=== PATIENT | male | born 1940 | race Caucasian/White ===

== ENCOUNTER 2016-10-17 11:40 | Emergency (ER) | payer MEDICARE ==
[~2016-10-17] VITALS: Ht 175.3 cm; Wt 109.0 kg
[2016-10-17 11:48] VITALS: TEMP 36.5; Ht 175.3 cm; Wt 109.0 kg
[2016-10-17] MEDS ORDERED: DILT120C68 PO (12:08)
[2016-10-17] MEDS ORDERED: SIMV40TA2 PO (12:08)
[2016-10-17] MEDS ORDERED: GABA1CAP PO (12:08)
[2016-10-17] MEDS ORDERED: WARF5TAB7 PO ×2 (12:08)
--- NOTE | 2016-10-17 12:40 | EMERGENCY ROOM VISIT NOTE ---
History Report prepared by Harley: Jamison Rockwell Under the Supervision of: Dr. Mars Crespo M.D. First contact with patient: 12:17 Chief Complaint: HIP PAIN Stated Complaint: LEFT HIP DOWN TO ANKLE PAIN-SENT FROM [facility] History of Present Illness The patient is a 76 year old male who presents to the Emergency Room with complaints of constant left leg pain starting yesterday. He currently rates his discomfort as an 8/10 in severity. The patient states that the pain goes from his left buttocks to his left calf. He states that he has not been doing heavy lifting, and he has had no trauma. The patient states that he is currently on warfarin for a history of A-fib, though he does not have any history of clots in his legs. He states that his Coumadin level was 2.7 two weeks ago. The patient states that he has never had pain like this before, and he has taken Tylenol for the pain. He additionally notes that last week he drove here from [place]. Source of History: patient Onset: yesterday Position: leg (left) Symptom Intensity: 8/10 Timing: constant Review of Systems See HPI for pertinent positives & negatives. A total of 10 systems reviewed and were otherwise negative. Past Medical & Surgical Medical Problems: (1) A-fib Social History Smoking Status: Never Smoker Marital Status: Housing Status: lives with family Occupation Status: employed Current/Historical Medications Scheduled Diltiazem Hcl Ext Rel (Tiazac), 120 MG PO DAILY Gabapentin (Neurontin), Unknown Dose PO DAILY Simvastatin (Zocor), 40 MG PO DAILY Warfarin Sod (Jantoven), 5 MG PO 3XWK Warfarin Sod (Jantoven), 7.5 MG PO 4XWK Scheduled PRN Tramadol (Ultram), 1-2 TAB PO Q6 PRN for Pain or Fever Allergies Coded Allergies: No Known Allergies (Unverified , 10/17/16) Physical Exam Vital Signs Date Time Temp Pulse Resp B/P (MAP) Pulse Ox O2 Delivery O2 Flow Rate FiO2 10/17/16 14:28 85 16 121/68 96 Room Air 10/17/16 11:48 36.5 93 18 143/84 93 Room Air Physical Exam GENERAL: Patient is in no acute distress. HEENT: No acute trauma, normocephalic atraumatic, mucous membranes moist, no nasal congestion, no scleral icterus. NECK: No stridor, no adenopathy, no meningismus, trachea is midline. LUNGS: Clear to auscultation bilaterally, no wheeze, no rhonchi, breath sounds equal. HEART: Irregular rhythm with normal rate. No murmur. ABDOMEN: Soft, nontender, bowel sounds positive, no hernias, no peritonitis. EXTREMITIES: Mild bilateral pedal edema with chronic skin change. No cellulitis. Both feet warm to touch. Tenderness to palpation to the left, posterior, superior calf. NEUROLOGIC: Oriented x 3, no acute motor or sensory deficits, no focal weakness. SKIN: No rash, no jaundice, no diaphoresis. Medical Decision & Procedures ER Provider Diagnostic Interpretation: Radiology results as stated below per my review and radiologist interpretation: LEFT LOWER EXTREMITY VENOUS DOPPLER HISTORY: Left leg pain, driving alot, swelling COMPARISON STUDY: None. FINDINGS: There is normal compressibility, flow, and augmentation within the left lower extremity deep venous system. IMPRESSION: No DVT within the left lower extremity. Electronically signed by: Franco Taveras M.D. 10/17/2016 2:05 PM Dictated Date/Time: 10/17/2016 2:04 PM LEFT FEMUR 2 VIEWS ROUTINE, LEFT HIP UNILATERAL 2 VIEWS, LEFT KNEE 1 OR 2 VIEWS ROUTINE HISTORY: 76 years-old Male acute left leg pain COMPARISON: None available TECHNIQUE: 2 views of left knee, 2 views of the left hip and 2 views of the left femur FINDINGS: HIP: Moderate left hip degenerative changes are present. The bones are mildly demineralized. There is no acute fracture or dislocation. Metallic clips are seen overlying the pubic symphysis. FEMUR: The bones are mildly demineralized. No acute fracture or dislocation is identified. Tricompartmental osteoarthritis about the knee is noted as described below. KNEE: Chondrocalcinosis is noted within the medial and lateral compartments. Mild to moderate medial and patellofemoral osteoarthritis is noted with mild lateral compartment disease. The bones are mildly demineralized. There is no acute fracture or dislocation identified. There is a small joint effusion. No intra-articular was body identified. IMPRESSION: 1. No acute fracture or dislocation of the left hip, femur or knee. 2. 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 3. Small knee joint effusion. The above report was generated using voice recognition software. It may contain grammatical, syntax or spelling errors. Electronically signed by: Amaury Pagan M.D. 10/17/2016 1:30 PM Dictated Date/Time: 10/17/2016 1:25 PM LEFT FEMUR 2 VIEWS ROUTINE, LEFT HIP UNILATERAL 2 VIEWS, LEFT KNEE 1 OR 2 VIEWS ROUTINE HISTORY: 76 years-old Male acute left leg pain COMPARISON: None available TECHNIQUE: 2 views of left knee, 2 views of the left hip and 2 views of the left femur FINDINGS: HIP: Moderate left hip degenerative changes are present. The bones are mildly demineralized. There is no acute fracture or dislocation. Metallic clips are seen overlying the pubic symphysis. FEMUR: The bones are mildly demineralized. No acute fracture or dislocation is identified. Tricompartmental osteoarthritis about the knee is noted as described below. KNEE: Chondrocalcinosis is noted within the medial and lateral compartments. Mild to moderate medial and patellofemoral osteoarthritis is noted with mild lateral compartment disease. The bones are mildly demineralized. There is no acute fracture or dislocation identified. There is a small joint effusion. No intra-articular was body identified. IMPRESSION: 1. No acute fracture or dislocation of the left hip, femur or knee. 2. 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 3. Small knee joint effusion. The above report was generated using voice recognition software. It may contain grammatical, syntax or spelling errors. Electronically signed by: Amaury Pagan M.D. 10/17/2016 1:30 PM Dictated Date/Time: 10/17/2016 1:25 PM LEFT FEMUR 2 VIEWS ROUTINE, LEFT HIP UNILATERAL 2 VIEWS, LEFT KNEE 1 OR 2 VIEWS ROUTINE HISTORY: 76 years-old Male acute left leg pain COMPARISON: None available TECHNIQUE: 2 views of left knee, 2 views of the left hip and 2 views of the left femur FINDINGS: HIP: Moderate left hip degenerative changes are present. The bones are mildly demineralized. There is no acute fracture or dislocation. Metallic clips are seen overlying the pubic symphysis. FEMUR: The bones are mildly demineralized. No acute fracture or dislocation is identified. Tricompartmental osteoarthritis about the knee is noted as described below. KNEE: Chondrocalcinosis is noted within the medial and lateral compartments. Mild to moderate medial and patellofemoral osteoarthritis is noted with mild lateral compartment disease. The bones are mildly demineralized. There is no acute fracture or dislocation identified. There is a small joint effusion. No intra-articular was body identified. IMPRESSION: 1. No acute fracture or dislocation of the left hip, femur or knee. 2. 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 3. Small knee joint effusion. The above report was generated using voice recognition software. It may contain grammatical, syntax or spelling errors. Electronically signed by: Amaury Pagan M.D. 10/17/2016 1:30 PM Dictated Date/Time: 10/17/2016 1:25 PM Laboratory Results Test 10/17/16 12:48 Prothrombin Time 29.3 SECONDS (9.0-12.0) Prothromb Time International Ratio 2.6 (0.9-1.1) Activated Partial Thromboplast Time 38.2 SECONDS (21.0-31.0) Partial Thromboplastin Ratio 1.5 Laboratory results reviewed by me. ED Course 1217: The patient was evaluated in room A2. A complete history and physical exam was performed. 1410: I went to reevaluate the patient, but he was still at ultrasound. 1432: Reevaluated the patient. Discussed results and discharge instructions: He verbalized understanding and agreement. The patient is ready for discharge. 1450: I reassessed the patient, and talked with him again and answered his questions. He is good to go home. Medical Decision Differential Diagnoses Include: Sciatica, nerve impingement, hematoma, Mcghee's cyst, fracture or bone lesion, cellulitis, and DVT The patient presents with left leg pain from the buttock down to the ankle. Imaging of the left hip, femur and knee did not show any lytic lesions. Arthritis was seen, no fracture. Left leg ultrasound does not show any DVT. There was no cellulitis of the left lower extremity clinically. INR was subtherapeutic for someone using Coumadin. The patient presents with left leg pain. The pain is likely sciatica and or arthritis related. The patient was reassured by his negative ultrasound. I'm going to try some tramadol for uncontrolled pain. Ice was suggested. He will follow with his doctor as needed and return here if worsening. [place] Drug Monitoring Program Search Results: patient reviewed within database, no issues identified Medication Reconcilliation Current Medication List: was personally reviewed by me Blood Pressure Screening Patient's blood pressure: Elevated blood pressure Blood pressure disposition: Elevated BP felt to be situational Impression Primary Impression: Leg pain, left Additional Impression: Sciatica Scribe Attestation The scribe's documentation has been prepared under my direction and personally reviewed by me in its entirety. I confirm that the note above accurately reflects all work, treatment, procedures, and medical decision making performed by me. Departure Information Dispostion Home / Self-Care Prescriptions Tramadol (Ultram) 50 Mg Tab 1-2 TAB PO Q6 Y for Pain or Fever, #12 TAB Prov: Mars Crespo M.D. 10/17/16 Referrals No Doctor, Assigned (PCP) Forms HOME CARE DOCUMENTATION FORM, IMPORTANT VISIT INFORMATION Patient Instructions My [facility] Additional Instructions may use tylenol for pain ice to the sore areas tramadol 1-2 tab every 6 hours for more severe pain no driving with the Tramadol return if worsening no clot by testing arthritis was seen on xray Problem Qualifiers
[2016-10-17 13:11] LABS: INR 2.6 (0.9-1.1); PARTIAL THROMBOPLASTIN RATIO 1.5; PROTHROMBIN TIME (PATIENT) 29.3 SECONDS (9.0-12.0)
--- NOTE | 2016-10-17 13:31 | DIAGNOSTIC IMAGING REPORT ---
LEFT FEMUR 2 VIEWS ROUTINE, LEFT HIP UNILATERAL 2 VIEWS, LEFT KNEE 1 OR 2 VIEWS ROUTINE HISTORY: 76 years-old Male acute left leg pain COMPARISON: None available TECHNIQUE: 2 views of left knee, 2 views of the left hip and 2 views of the left femur FINDINGS: HIP: Moderate left hip degenerative changes are present. The bones are mildly demineralized. There is no acute fracture or dislocation. Metallic clips are seen overlying the pubic symphysis. FEMUR: The bones are mildly demineralized. No acute fracture or dislocation is identified. Tricompartmental osteoarthritis about the knee is noted as described below. KNEE: Chondrocalcinosis is noted within the medial and lateral compartments. Mild to moderate medial and patellofemoral osteoarthritis is noted with mild lateral compartment disease. The bones are mildly demineralized. There is no acute fracture or dislocation identified. There is a small joint effusion. No intra-articular was body identified. IMPRESSION: 1. No acute fracture or dislocation of the left hip, femur or knee. 2. 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 3. Small knee joint effusion. The above report was generated using voice recognition software. It may contain grammatical, syntax or spelling errors. Electronically signed by: Amaury Pagan M.D. 10/17/2016 1:30 PM Dictated Date/Time: 10/17/2016 1:25 PM
--- NOTE | 2016-10-17 14:06 | DIAGNOSTIC IMAGING REPORT ---
LEFT LOWER EXTREMITY VENOUS DOPPLER HISTORY: Left leg pain, driving alot, swelling COMPARISON STUDY: None. FINDINGS: There is normal compressibility, flow, and augmentation within the left lower extremity deep venous system. IMPRESSION: No DVT within the left lower extremity. Electronically signed by: Franco Taveras M.D. 10/17/2016 2:05 PM Dictated Date/Time: 10/17/2016 2:04 PM
[2016-10-17 14:28] VITALS: BP 121/68; PULSE 85; O2SAT 96
[2016-10-17] MEDS ORDERED: TRAM-10 PO (14:38)
== END 2016-10-17 14:57 | disposition home or self-care (01) ==
LOC: C.EDB 11:45 → C.EDA 14:57
DX: M79.605 Pain in left leg (principal); M54.42 Lumbago with sciatica, left side; I48.91 Unspecified atrial fibrillation; M16.12 Unilateral primary osteoarthritis, left hip; M17.12 Unilateral primary osteoarthritis, left knee; M25.462 Effusion, left knee; Z79.01 Long term (current) use of anticoagulants